=== PATIENT | female | born 1960 | race Caucasian/White ===

== ENCOUNTER 2023-01-07 06:17 | Observation (INO) ==
--- NOTE | 2022-12-22 09:17 | PAT Medication Instructions ---
Medication Instructions Date of Service December 22, 2022 Home Medications cholecalciferol (vitamin D3) 125 mcg (5,000 unit) tablet (Vitamin D3) 125 mcg PO QAM divalproex 500 mg tablet,extended release 24 hr (Depakote ER) 1,000 mg PO PM galcanezumab-gnlm 120 mg/mL subcutaneous pen injector (Emgality Pen) 120 mg subcut MO levocetirizine 5 mg tablet (Xyzal) 5 mg PO PM omeprazole 20 mg tablet,delayed release 20 mg PO QPM rizatriptan 10 mg tablet (Maxalt) 0 mg PO .COMPLEX valsartan 80 mg tablet 80 mg PO QAM vitamin E 1 dose PO QAM Continue as directed galcanezumab-gnlm 120 mg/mL subcutaneous pen injector (Emgality Pen) 120 mg subcut MO STOP taking 2 weeks before surgery (or as soon as possible if surgery is within 2 weeks) vitamin E 1 dose PO QAM DO NOT take the morning of surgery cholecalciferol (vitamin D3) 125 mcg (5,000 unit) tablet (Vitamin D3) 125 mcg PO QAM valsartan 80 mg tablet 80 mg PO QAM Take morning of surgery With a small sip of water, OTHERWISE NOTHING TO EAT OR DRINK AFTER MIDNIGHT: rizatriptan 10 mg tablet (Maxalt) 0 mg PO .COMPLEX (if needed) Take evening before surgery divalproex 500 mg tablet,extended release 24 hr (Depakote ER) 1,000 mg PO PM levocetirizine 5 mg tablet (Xyzal) 5 mg PO PM omeprazole 20 mg tablet,delayed release 20 mg PO QPM rizatriptan 10 mg tablet (Maxalt) 0 mg PO .COMPLEX (if needed) Other Notes If you have any questions please call us at [phone] or [phone] or [phone] or [phone]
--- NOTE | 2022-12-23 11:32 | Anesthesiology Consultation ---
Date of Service December 23, 2022 Assessment & Plan (1) Encounter for pre-operative examination: Chart Review Chart Review: Acceptable Risk for Surgery (pending PCP clearance ) and Patient seen in Pre Admission Testing - Awaiting PCP clearance (patient is scheduling) - Pt is NOT an ideal Outpatient Joint Candidate Per PAT appt on 12/23/22, patient denies any recent travel or large group activities. Pt is vaccinated for Covid. Will leave to surgeon's discretion if preop Covid testing needed. Educated on importance of using Covid precautions one week prior to surgery Pt last seen by cardio 03/26/21= seen for evaluation of abnormal EKG. "EKG demonstrates a RBBB and LAFB. Otherwise normal. Unchanged from prior EKGs dating back to at least 2011. ECHO in 2019 was unremarkable." Hx of WPW- s/p ablation 2000. Has done well since then. No significant arrhythmias. Recommend sleep study for snoring and oxygen desaturations at night. Otherwise no additional cardiac testing required at this time. Follow up as needed (Discussed with Dr. Pierce- patient can proceed as scheduled- known bifascicular block; s/p ablation for WPW; asymptomatic) Teaching & Discussion Pre-Anesthesia Teaching/Discussion Notes: Instructed NPO after midnight before surgery,except medications with 15 cc of water. Medication instructions provided according to the PAT guidelines. History Surgery Operation Date: 01/07/23 12:15 Proposed Procedures p Right Total Knee Arthroplasty - Dion Brady DO Height/Weight Height: 5 ft 4 in Weight: 110.2 kg Allergies Allergy/AdvReac Type Severity Reaction Status Date / Time adhesive Allergy Unknown CLEAR Verified 12/19/22 15:34 SURGICAL TAPE-RASH meperidine Allergy Unknown NAUSEA AND Verified 12/19/22 15:34 VOMITING morphine Allergy Unknown FELT LIKE Verified 12/19/22 15:34 HEAD EXPLODED prednisone Allergy Unknown DIFFICULTY Verified 12/19/22 15:34 BREATHING Medications Home Medications Medication Instructions Recorded Confirmed Last Taken cholecalciferol (vitamin D3) 125 125 mcg PO QAM 12/19/22 12/19/22 Unknown mcg (5,000 unit) tablet (Vitamin D3) divalproex 500 mg tablet,extended 1,000 mg PO PM 12/19/22 12/19/22 Unknown release 24 hr (Depakote ER) galcanezumab-gnlm 120 mg/mL 120 mg subcut MO 12/19/22 12/19/22 Unknown subcutaneous pen injector (Emgality Pen) levocetirizine 5 mg tablet (Xyzal) 5 mg PO PM 12/19/22 12/19/22 Unknown omeprazole 20 mg tablet,delayed 20 mg PO QPM 12/19/22 12/19/22 Unknown release rizatriptan 10 mg tablet (Maxalt) 0 mg PO .COMPLEX 12/19/22 12/19/22 Unknown valsartan 80 mg tablet 80 mg PO QAM 12/19/22 12/19/22 Unknown vitamin E 1 dose PO QAM 12/19/22 12/19/22 Unknown Past Medical History Medical History (Updated 12/24/22 @ 12:00 by Yolanda Moreland PA-C) Autoimmune disorder Being worked up for autoimmune disorder. Following with Dr. Perkins at [facility]. Cardiac murmur No murmur noted at 12/23/22 PAT appt Last ECHO done around 2018- [facility] Fatty liver GERD (gastroesophageal reflux disease) Well controlled and stable with med Hiatal hernia History of gout No recent issues History of kidney stones History of migraine History of Lwhjv-Kzknajmln-Xqjzl (WPW) syndrome S/p ablation 2000- no issues since No appointment scheduler at present (last seen by cardio 2020- follow up PRN) HTN (hypertension) Morbid obesity with BMI of 40.0-44.9, adult PONV (postoperative nausea and vomiting) Sleep apnea Unable to tolerate CPAP TMJ (temporomandibular joint disorder) Hx of locking -no recent issues- occ clicking Exercise / Class Metabolic Activity III < 4 Walking/Shop/Light housework (one flight of stairs - no chest pain, mild SOB ) Past Family History Family History Other No family history of adverse response to anesthesia Past Surgical History Surgical History History of x2 History of cardiac catheterization 18 years ago -- no stents History of cardiac radiofrequency ablation for WPW History of carpal tunnel surgery x3 History of colonoscopy History of cystoscopy History of esophagogastroduodenoscopy (EGD) History of laparoscopy x 3 History of left knee replacement History of nephrolithotomy with removal of calculi History of partial thyroidectomy benign tumor History of tonsillectomy and adenoidectomy History of ureter stent S/P excision of lipoma S/P trigger finger release Past Anesthesia History No Hx of Anesthesia Complications (with exception to PONV - no recent issues (unsure if pre-medicated beforehand with IV meds)) and No Family Hx of Anesthesia Complications History of PONV No Hx of Motion Sickness and History of PONV Social History Smoking Status: Never smoker Do You Dip or Chew Tobacco: No Hx Alcohol Use: Yes alcohol intake frequency: holidays/special occasions only Hx Substance Use: No substance use type: does not use Review of Systems Occ palpitations - feels secondary Chronic cough- secondary to allergies- no change - stable Patient denies chest pain, shortness of breath at rest, wheezing No hx of seizures, stroke, OH. No hx of blood clots or blood transfusions Physical Exam Vital Signs VITALS BP 123/82 P 94 TEMP 98.5 SP02 95% RESP 16 Constitutional no acute distress ENMT Mouth: no TMJ clicking Thyromental Distance: > or= 3.5 Finger Breadths (4.0) Mallampati Class: III Mouth / Teeth: 1. Missing 2. Missing Missing side teeth and molars Neck + thick neck and + limited neck extension (mild) Respiratory normal respiratory effort; no respiratory distress Auscultation: lungs clear to auscultation bilaterally; no wheezes Cardiovascular Rate/Rhythm: regular rate and regular rhythm Heart Sounds: no murmur Vessels: no carotid bruit Musculoskeletal Spine: + pain with cervical ROM (mild) Extremities: extremities normal to inspection Psychiatric Orientation: alert Lab Results Anesthesia Preop Results Results Anesthesia Widget: WBC 6.04 K/ul (4.8-10.8) 12/23/22 Hgb 13.7 g/dl (12.0-16.0) 12/23/22 Hct 39.7 % (37.0-47.0) 12/23/22 Plt 176 K/uL (130-400) 12/23/22 Na 140 mmol/L (136-145) 12/23/22 K 3.3 mmol/L (3.5-5.1) L 12/23/22 Cl 109 mmol/L (98-107) H 12/23/22 CO2 24 mmol/L (21-32) 12/23/22 BUN 12 mg/dl (6-23) 12/23/22 Creat 0.60 mg/dl (0.6-1.2) 12/23/22 Glucose Level 108 mg/dl (70-99(Fasting)) H 12/23/22 PT 11.9 Seconds (9.0-12.0) 12/23/22 PTT 26.8 Seconds (21.0-31.0) 12/23/22 INR 1.1 (0.9-1.1) 12/23/22 HA1c 6.3 % (4.5-5.6) H 12/23/22 Urine Color Yellow 12/23/22 Urine Appearance Clear (Clear) 12/23/22 Urine pH 6.0 (4.5-7.5) 12/23/22 Urine Specific [place] 1.014 (1.000-1.030) 12/23/22 Urine Protein Negative (Negative) 12/23/22 Urine Glucose (UA) Negative (Negative) 12/23/22 Urine Ketones Negative (Negative) 12/23/22 Urine Blood Negative (Negative) 12/23/22 Urine Nitrite Negative (Negative) 12/23/22 Urine Bilirubin Negative (Negative) 12/23/22 Urine Urobilinogen Negative (Negative) 12/23/22 Urine Leukocyte Esterase Negative (Negative) 12/23/22 Blood Type O Negative 12/23/22 Antibody Screen NEGATIVE 12/23/22 Testing Electrocardiogram Date: 12/23/22 Findings: + NSR @ (71bpm ) RBBB LAFB Bifascicular block (Per cardio note 03/26/21- "EKG demonstrates RBBB and LAFB. Otherwise normal. Unchanged from prior EKGs dating back to at least 2011. ECHO ins 2019 was unremarkable) Chest X-Ray Date: 12/23/22 FINDINGS: Hyperinflation with diaphragmatic flattening. The cardiomediastinal and hilar silhouettes are within normal limits. No pneumothorax, pleural effusion, airspace consolidation or pulmonary edema. Degenerative changes of the shoulders and spine. IMPRESSION: Mild hyperinflation without acute process. Echocardiogram Date: 12/21/18 EF: 60% LV Function: normal RWMA: + none Other Findings: no LVH Mild aortic and mitral valve thickening without stenosis or regurgitation Mild TR. COVID-19 Risk Screen Screening Information COVID-19 Screen Date: 12/23/22 Exposure 21 Days Family/Household +COVID Last 21 Days: No Exposure 10 Days Any COVID Exposure Last 10 Days: No Symptoms Last 10 Days Experienced COVID Sx Last 10 Days: No + COVID 0-90 Days COVID + in Last 0-90 Days: No Risk Plan COVID Risk Plan: No Risk Identified Patient Education COVID Preop Screening Education Complete: Yes
--- NOTE | 2022-12-24 11:53 | History & Physical Report ---
Date of Service December 24, 2022 date of surgery: 01/07/23 Procedure: Right Total Knee Arthroplasty Surgeon: Dion Brady Assessment & Plan (1) Arthritis of right knee: Plan: Further care discussed with patient and at this point in time has failed conservative measures and would like to proceed with a right total knee replacement. Plan on discharge will be home with home health physical therapy. DVT prophylaxiswith TEDs, SCDs and will also place on aspirin 81 mg p.o. b.i.d. for a month postop. Patient will have follow up appointment in our office two weeks post op for staple/suture removal and re-evaluation. Patient otherwise has no other questions or concerns. The risks and benefits have been discussed including, but not limited to, risk of infection, nerve injury, stiffness, loss of motion, failure to improve, etc. Reasonable outcomes and options of treatment were discussed. An explanation of appropriate alternatives to the procedure that may be advantageous were discussed and their risks and benefits, as well as the risks and benefits of not proceeding with treatment. I offered to answer any additional inquiries concerning the treatment involved. All the patient's questions were answered. The patient is agreeable, understanding of the treatment plan and alternatives, and wishes to proceed with the treatment plan. History of Present Illness Chief Complaint: Right knee pain Primary Care Provider: Doug Solis MD Marylou is a 62 year old female who complains of right knee pain, presents for pre-op evaluation prior to a right total knee replacement by Dr Brady at [facility]. she complains of pain, decreased range of motion, instability and stiffness in her right knee. she states that the symptoms have been chronic and non-traumatic and occurs constantly with intermittent worsening. Currently the patient states that the symptoms are moderate-severe. The pain is described as aching, sharp and throbbing. The symptoms occur continuously. The symptoms are aggravated by ascending stairs, daily activities, first steps while awake walking. Prior NSAIDs include IBU and Aleve. she has been treated with previous cortisone and visco injections in the past without much relief. Allergies Allergy/AdvReac Type Severity Reaction Status Date / Time adhesive Allergy Unknown CLEAR Verified 12/19/22 15:34 SURGICAL TAPE-RASH meperidine Allergy Unknown NAUSEA AND Verified 12/19/22 15:34 VOMITING morphine Allergy Unknown FELT LIKE Verified 12/19/22 15:34 HEAD EXPLODED prednisone Allergy Unknown DIFFICULTY Verified 12/19/22 15:34 BREATHING Home Medications Medication Instructions Recorded Confirmed Type cholecalciferol (vitamin D3) 125 125 mcg PO QAM 12/19/22 12/19/22 History mcg (5,000 unit) tablet (Vitamin D3) divalproex 500 mg tablet,extended 1,000 mg PO PM 12/19/22 12/19/22 History release 24 hr (Depakote ER) galcanezumab-gnlm 120 mg/mL 120 mg subcut MO 12/19/22 12/19/22 History subcutaneous pen injector (Emgality Pen) levocetirizine 5 mg tablet (Xyzal) 5 mg PO PM 12/19/22 12/19/22 History omeprazole 20 mg tablet,delayed 20 mg PO QPM 12/19/22 12/19/22 History release rizatriptan 10 mg tablet (Maxalt) 0 mg PO .COMPLEX 12/19/22 12/19/22 History valsartan 80 mg tablet 80 mg PO QAM 12/19/22 12/19/22 History vitamin E 1 dose PO QAM 12/19/22 12/19/22 History Past Med/Surg History Medical History Autoimmune disorder Being worked up for autoimmune disorder. Following with Dr. Perkins at [facility]. Cardiac murmur No murmur noted at 12/23/22 PAT appt Last ECHO done around 2019- [facility] [place] or [facility] Fatty liver GERD (gastroesophageal reflux disease) Well controlled and stable with med Hiatal hernia History of gout No recent issues History of kidney stones History of migraine History of Zpzve-Dwpigacdn-Ahebp (WPW) syndrome S/p ablation 2000- no issues since No circuit manager at present (had to see [facility] approx 1 year ago for surgical clearance) HTN (hypertension) Morbid obesity with BMI of 40.0-44.9, adult PONV (postoperative nausea and vomiting) Sleep apnea Unable to tolerate CPAP TMJ (temporomandibular joint disorder) Hx of locking -no recent issues- occ clicking Surgical History History of x2 History of cardiac catheterization 18 years ago -- no stents History of cardiac radiofrequency ablation for WPW History of carpal tunnel surgery x3 History of colonoscopy History of cystoscopy History of esophagogastroduodenoscopy (EGD) History of laparoscopy x 3 History of left knee replacement History of nephrolithotomy with removal of calculi History of partial thyroidectomy benign tumor History of tonsillectomy and adenoidectomy History of ureter stent S/P excision of lipoma S/P trigger finger release Family History Other No family history of adverse response to anesthesia Social History Smoking Status: Never smoker Second Hand Exposure: No; Hx Alcohol Use: Yes Hx Substance Use: No Preferred Language: Danish Post Office Clerk Required: No Beliefs That Will Affect Care: None Current Living Situation: Significant Other Feels Safe at Home: Yes Assistive Devices: Glasses Review of Systems Review of Systems: All systems reviewed & are unremarkable except as noted in HPI & below Constitutional: no fever, no chills and no sweats Respiratory: no cough and no dyspnea Cardiovascular: no chest pain, no dyspnea and no orthopnea Gastrointestinal: no abdominal pain, no nausea and no vomiting Musculoskeletal: as per Subjective / HPI Physical Exam Physical Exam: HT: 5ft 4in WT: 110kg Constitutional: WD/WN, vitals as above no acute distress Respiratory: normal respiratory effort, lungs clear to auscultation no respiratory distress, no labored breathing and does not use accessory muscles Cardiovascular: RRR, no murmur, no edema Gastrointestinal (Abdomen): normal bowel sounds, soft, nontender, no hepatosplenomegaly Musculoskeletal: Knee: + knee abnormal to inspection (RIGHT KNEE: ), + effusion (+1 effusion), + limited ROM of knee (ROM 0/3/110), + knee ROM with crepitation, + joint line tenderness (medial joint line) and + Doe's sign positive; no deformity, no skin erythema, no ecchymosis, no valgus laxity, no varus laxity, anterior drawer test negative, Lauren's sign negative and pivot shift test negative Results & Data Results & Data ([facility]) Diagnostic Findings Right Knee X-ray: Right knee series showing advanced degenerative changes to the right knee, narrowing of the medial compartment and patello-femoral joint with patellar spurring noted, findings showing joint space narrowing of the medial compartment and patello-femoral joint, osteophyte formation and subchondral sclerosis noted. overall varus alignment. no acute bony pathology noted.
[~2023-01-07 06:17] MED LIST: ACETAMINOPHEN 500 MG TAB PO SCH; ALLERGY Noted to ORDERED Medication SCH; CeleBREX 200 MG CAP PO SCH; FAMOTIDINE 20 MG TAB PO SCH; GABAPENTIN 600 MG DOSE PO SCH; LR 500ML BOLUS, THEN 15ML/HR IV SCH; ROPIVACAINE 0.5% HCL/PF 150 MG, BUPIVACAINE 0.75% MPF 20 ML, EPINEPHrine 30MG/30ML (OR ... INSTIL SCH; TRANEXAMIC ACID 1,000 MG **IV Intra-op IV SCH; TRANEXAMIC ACID 1,000 MG **IV Pre-op IV SCH; ceFAZolin 2000MG 2,000 MG/15 ML SYR IV SCH
[2023-01-07] MEDS ORDERED: ROPIVACAINE 0.5% 5 MG/ML 30 ML VIAL ONE (06:31)
[2023-01-07] MEDS ORDERED: BUPIVACAINE 0.5 % 5 MG/1 ML PF 10ML VIAL ONE (06:31)
[2023-01-07] MEDS ORDERED: MIDAZOLAM HCL 1 MG/ML 2ML VIAL ONE (06:50)
[2023-01-07] MEDS ORDERED: fentaNYL citrate PF 100 MCG/2 ML VIAL ONE (06:50)
[2023-01-07] MEDS ORDERED: ORTHO JOINT ANESTHETIC ONE (07:03)
--- NOTE | 2023-01-07 07:09 | History & Physical Bridge Note ---
Date of Service January 07, 2023 History & Physical Bridge Note I have examined the patient, reviewed the History & Physical and in the interval since the performance of the History & Physical I have noted the following changes of clinical significance: no changes noted
[2023-01-07] MEDS ORDERED: ONDANSETRON INJ 2 MG/ML 2 ML VIAL IV PRN ×2 (07:10→10:54)
[2023-01-07] MEDS ORDERED: ePHEDrine sulfate 50 MG/ML AMP IV PRN (07:10)
[2023-01-07] MEDS ORDERED: ATROPINE SULFATE 0.1 MG/ML 10ML SYR IV PRN (07:10)
[2023-01-07] MEDS ORDERED: ROPIVACAINE 0.5% HCL/PF 150 MG, BUPIVACAINE 0.75% MPF 20 ML, EPINEPHrine 30MG/30ML (OR ... INFIL SCH (08:00)
[2023-01-07] MEDS ORDERED: ONDANSETRON INJ 2 MG/ML 2 ML VIAL ONE (08:07)
[2023-01-07] MEDS ORDERED: PROPOFOL IV EMULSION 10 MG/ML 20 ML VIAL IV ONE (08:07)
[2023-01-07] MEDS ORDERED: ALBUTEROL HFA 8 GM INHALER INH ONE (08:36)
--- NOTE | 2023-01-07 08:53 | Operative Report ---
Post Operative Report Pre & Post Diagnosis Operation Date: 01/07/23 08:25 Pre-Op Diagnosis: Osteoarthritis Knee Right Post-Op Diagnosis: Osteoarthritis Knee Right I identified the patient and participated in the time-out.: Yes Procedure Operation Date: 01/07/23 08:25 Actual Procedures p Right Total Knee Arthroplasty(Right) utilizing Julian & NephBLOVES journey 2 nonblock right total knee arthroplasty size femur 4 tibia 3 Poly 12 patella 32 natacha Brady DO Surgeon Dion Brady DO Seaman Officer LEONARD Collins Estimated Blood Loss 5 Findings Consistent with Post-Op Diagnosis Patient presents with severe end-stage tricompartmental degenerative joint disease right knee eburnated [id number] marginal osteophytes moderate to large effusion Specimens Bone and cartilage Drains Medium bore Hemovac Anesthesia Type MAC Spinal Regional Complications none Disposition Accompanied Patient To Recovery: No Disposition: Recovery Room Indications Patient presents with severe end-stage DJD right knee eburnated [id number] nonresponsive corticosteroid injection viscosupplementation bracing relative rest activity modification presents for total knee arthroplasty Description of Procedure After proper prepping and draping of the Right lower extremity anterior midline incision was made over the region of the extensor extensor mechanism after meticulous hemostasis was obtained and maintained in subcutaneous tissues a medial parapatellar incision was made The patella was subluxed lateralward the medial lateral gutter were cleaned from any hypertrophic synovitis and scar tissue of the distal femoral block was placed and the distal femoral osteotomy cut was made subsequently the chamfers anterior and posterior osteotomy cuts were made utilizing the 4-in-1 block the tibia was subsequently subluxed anteriorward medial and ateral meniscal remnants were excised in their entirety remnants of the anterior and posterior cruciate ligaments were excised in their entirety excellent exposure of the proximal tibia was obtained the tibial osteotomy guide was placed on the proximal tibial osteotomy cut was made once again the knee was irrigated with copious amounts of sterile saline solution the patella was subsequently everted lateralward thickened scar tissue around the patella was removed the patella was subsequently cut utilizing a freehand technique and was drilled prepared for final preparation and placement of patella socially flexion-extension gaps were checked and the equal and symmetric trials were placed to the appropriate femoral and tibial trials with poly-spacer being placed for equal flexion and extension gaps and full range of motion including extension to 0 and flexion to 140 the trial components after having been taken to recovery range of motion was subsequently removed meticulous hemostasis was obtained and maintained subsequently a knee block injection of joint cocktail including ropivacaine 0.5% 150 mg. Bupivacaine 0.5% epinephrine 1-200,030 mL's toradol 30 mg dexamethasone 4 mg ketamine 10 mg clonidine 100 micrograms normal saline solution 30 mg was infiltrated into the soft tissues of the posterior knee medial lateral gutters and periosteal synovium special attention was paid to protect neurovascular structures at all times subsequently trial components having been removed the knee was irrigated with sterile saline solution. debris was removed the proximal tibia was subsequently prepared and was made ready for the placement of the tibial component tibial component was also cemented and tamped into position the femoral component was subsequently placed and cemented in the position the patellar component was subsequently cemented in position because hemostasis once again obtained and maintained wound having been thoroughly irrigated with debridement and debridement lavage was performed as well as a medial parapatellar incision closed with #1 Vicryl in interrupted fashion subcutaneous was closed with #2 Vicryl skin was closed with skin clips. PA-C was necessary for prepping and drapping as well as wound closure of deep fascia Sub cutaneous tissue and skin and was necessary for the case. A sterile compressive dressing was placed patient was taken to recovery in stable condition of report dictated by Jose Antonio I attest to the content of the Intraoperative Record and any orders documented therein. Any exceptions are noted below.Due to the complex nature of the procedure, the entire surgery was performed with the operational assistance of LEONARD Collins. The medical technician assistant, under direct supervision, was involved in the actual performance of all aspects of the surgical procedure including hemostasis, tissue retraction and incision, instrument management, patient positioning, and wound closure. I attest to the content of the Intraoperative Record and any orders documented therein. Any exceptions are noted below.
[2023-01-07] MEDS ORDERED: KETOROLAC 30 MG/ML VIAL ONE (08:56)
[2023-01-07] MEDS: fentaNYL citrate PF 100 MCG/2 ML VIAL IV PRN ×2 (09:37→09:42)
[2023-01-07] MEDS: HYDROmorphone INJ 2 MG/ML SYR/VIAL IV PRN ×2 (10:00→10:05)
--- NOTE | 2023-01-07 10:34 | Anesthesiology Progress Note ---
Date of Service January 07, 2023 Anesthesia Post Procedure Vital Signs Vital Signs: Temp Pulse Pulse Resp BP Pulse Ox O2 Del Method 01/07/23 10:30 68 12 112/74 93 Nasal Cannula 01/07/23 10:20 63 13 104/69 98 Nasal Cannula 01/07/23 10:10 36 C L 65 12 115/65 92 Nasal Cannula 01/07/23 10:00 64 13 125/69 97 Oxymask 01/07/23 09:50 71 11 L 117/77 94 Oxymask 01/07/23 09:40 69 18 125/85 95 Oxymask 01/07/23 09:30 80 20 123/61 91 Oxymask 01/07/23 09:23 36.7 C 87 21 121/78 91 Oxymask 01/07/23 06:45 36.9 C 85 14 150/93 H 97 Room Air O2 Flow Rate 01/07/23 10:30 4 01/07/23 10:20 4 01/07/23 10:10 4 01/07/23 10:00 4 01/07/23 09:50 9 01/07/23 09:40 9 01/07/23 09:30 9 01/07/23 09:23 5 01/07/23 06:45 Pain Intensity Right Knee: Pain Intensity: 4 Transfer of Care Handoff Completed per policy Notes Mental Status: alert / awake / arousable and participated in evaluation Patient Amnestic to Procedure: Yes Nausea / Vomiting: adequately controlled Pain: adequately controlled Airway Patency, RR, SpO2: see Notes below (pt on 4L o2. pt saturating well while awake but desats when sleeping) BP & HR: stable & adequate Hydration State: stable & adequate Anesthetic Complications: no major complications apparent and Pt Satisfied with anesthetic care
--- NOTE | 2023-01-07 10:36 | XRay Report ---
XR knee RT 1 or 2V routine CLINICAL HISTORY: Surgical Post Op COMPARISON: None FINDINGS: Alignment of the total right knee arthroplasty is anatomic. There is no periprosthetic fra cture or unexpected radiopaque foreign body. There are skin anya and drains. IMPRESSION: Expected findings following total right knee arthroplasty. ACT 112: Negative or not required by law. Electronically signed by: Merrill Farris M.D. 01/07/2023 10:35 AM
[2023-01-07] MEDS ORDERED: NALOXONE HCL 0.4 MG/1 ML VIAL/CARP IV PRN (10:54)
[2023-01-07] MEDS ORDERED: oxyCODONE HCL IR 5 MG TAB (IMMEDIATE RELEASE) PO PRN (10:54)
[2023-01-07] MEDS ORDERED: HYDROmorphone INJ 1 MG/ML SYRINGE IV PRN (10:54)
[2023-01-07] MEDS ORDERED: METOCLOPRAMIDE HCL INJ 5 MG/ML 2 ML VIAL IV PRN (10:54)
[2023-01-07] MEDS ORDERED: MAGNESIUM HYDROXIDE SUSP 30 ML UDC PO PRN (10:54)
[2023-01-07] MEDS ORDERED: bisacodyL 10 MG SUPP PR PRN (10:54)
[2023-01-07] MEDS ORDERED: RIZATRIPTAN BENZOATE 10 MG TAB PO PRN (10:54)
[2023-01-07] MEDS ORDERED: diphenhydrAMINE Capsule 25 MG CAP PO PRN (10:54)
[2023-01-07] MEDS: SODIUM CHLORIDE 0.9% 1000ML 1,000 ML IV SCH ×2 (12:22→22:15)
[2023-01-07] MEDS: KETOROLAC TROMETHAMINE 15 MG/ML VIAL IV SCH ×2 (12:22→17:52)
[2023-01-07] MEDS: ceFAZolin 2000MG 2,000 MG/15 ML SYR IV SCH ×2 (14:08→21:20)
[2023-01-07] MEDS: ACETAMINOPHEN 500 MG TAB PO SCH ×2 (14:08→21:21)
[2023-01-07] MEDS ORDERED: CeleBREX 200 MG CAP PO SCH (21:00)
[2023-01-07] MEDS ORDERED: DIVALPROEX EXTENDED RELEASE 500 MG TAB PO SCH (21:00)
[2023-01-07] MEDS ORDERED: CETIRIZINE HCL 10 MG TABLET PO SCH (21:00)
[2023-01-07] MEDS ORDERED: SENNA 8.6 MG TAB PO SCH (21:00)
[2023-01-07] MEDS: DOCUSATE SODIUM 100 MG CAP PO SCH (21:19)
[2023-01-07] MEDS: ASPIRIN 81 MG ECTAB PO SCH (21:19)
[2023-01-08] MEDS: KETOROLAC TROMETHAMINE 15 MG/ML VIAL IV SCH ×2 (00:33→05:26)
[2023-01-08] MEDS: ACETAMINOPHEN 500 MG TAB PO SCH (05:26)
[2023-01-08 08:11] LABS: Hematocrit (blood only) 33.2 % (37.0-47.0); Hemoglobin 11.1 g/dl (12.0-16.0); Mean Corpuscular Hemoglobin 29.4 pg (25.0-34.0); Mean Corpuscular Hgb Conc 33.4 g/dL (32.0-36.0); Mean Corpuscular Volume 87.8 fL (80.0-100.0); Mean Platelet Volume 9.7 fL (9.4-12.4); Platelet Count 142 K/uL (130-400); RDW Coefficient of Variation 13.8 % (11.5-14.5); RDW Standard Deviation 43.9 fL (36.4-46.3); Red Blood Count 3.78 M/uL (4.20-5.40); White Blood Count 5.25 K/ul (4.8-10.8)
[2023-01-08 08:27] LABS: BUN Creatinine Ratio 18.2 (10-20); Calcium 8.5 mg/dl (8.5-10.1); Creatinine Clr Calc Pharmacy 106.5 ml/min; Est GFR (African American) 109.7 ml/min; Est GFR (Non-African American) 94.7 ml/min; Potassium 3.9 mmol/L (3.5-5.1)
[2023-01-08] MEDS: DOCUSATE SODIUM 100 MG CAP PO SCH (08:41)
[2023-01-08] MEDS: ASPIRIN 81 MG ECTAB PO SCH (08:41)
[2023-01-08] MEDS ORDERED: CHOLECALCIFEROL 5,000 UNITS 125 MCG TAB PO SCH (09:00)
[2023-01-08] MEDS ORDERED: MULTIVITAMIN TAB PO SCH (09:00)
[2023-01-08] MEDS ORDERED: VITAMIN E PO SCH (09:00)
[2023-01-08] MEDS ORDERED: VALSARTAN 80 MG TAB PO SCH (09:00)
--- NOTE | 2023-01-08 10:05 | Orthopedic Progress Note ---
Date of Service January 08, 2023 Assessment & Plan (1) History of total right knee replacement: Plan: Pt is POD#1 s/p Right TKA -PT/OT -Pain regime as written -DVT ppx with TEDs/SCDs/ASA BID -Pt to have drain removed prior to D/C. She is stable from an orthopedic st andpoint to be discharged today. Admission and Anticipated Discharge Date Admission Date: January 07, 2023 Subjective Pt is POD #1 s/p Right TKA -Doing well this morning, resting in bed eating breakfast at time of exam -States she does have some pain now that her block has worn off, worse with movement, however is manageable at this time with current pain regime. -Denies CP, SOB, abdominal pain, fevers or chills Review of Systems Review of Systems: All systems reviewed & are unremarkable except as noted in Subjective Physical Exam Physical Exam: RLE with dressing and drain in place, area is c/d/i. Minimal output noted in hemovac during exam. Calf is soft and nontender and negative bryan sign. Able to wiggle toes without issue, full ROM of right ankle, distal perfusion and sensation grossly intact. Results & Data Vital Signs (Past 12 Hours) Vital Signs Temp Pulse Pulse Resp BP Pulse Ox O2 Del Method 01/08/23 08:12 36.8 C 70 18 111/72 94 Nasal Cannula 01/08/23 04:00 36.8 C 66 18 112/70 96 Nasal Cannula 01/08/23 00:34 36.7 C 68 18 105/66 93 Nasal Cannula O2 Flow Rate 01/08/23 08:12 2 01/08/23 04:00 2 01/08/23 00:34 2 Laboratory Results Laboratory Results WBC 5.25 K/ul (4.8-10.8) 01/08/23 07:43 RBC 3.78 M/uL (4.20-5.40) L 01/08/23 07:43 Hgb 11.1 g/dl (12.0-16.0) L 01/08/23 07:43 Hct 33.2 % (37.0-47.0) L 01/08/23 07:43 MCV 87.8 fL (80.0-100.0) 01/08/23 07:43 MCH 29.4 pg (25.0-34.0) 01/08/23 07:43 MCHC 33.4 g/dL (32.0-36.0) 01/08/23 07:43 RDW Std Deviation 43.9 fL (36.4-46.3) 01/08/23 07:43 RDW Coeff of Jing 13.8 % (11.5-14.5) 01/08/23 07:43 Plt Count 142 K/uL (130-400) 01/08/23 07:43 MPV 9.7 fL (9.4-12.4) 01/08/23 07:43 Sodium 142 mmol/L (136-145) 01/08/23 07:43 Potassium 3.9 mmol/L (3.5-5.1) 01/08/23 07:43 Chloride 110 mmol/L (98-107) H 01/08/23 07:43 Carbon Dioxide 26 mmol/L (21-32) 01/08/23 07:43 Anion Gap 6 (3-11) 01/08/23 07:43 BUN 12 mg/dl (6-23) 01/08/23 07:43 Creatinine 0.66 mg/dl (0.6-1.2) 01/08/23 07:43 Est Cr Clr Drug Dosing 106.5 ml/min 01/08/23 07:43 Est GFR ( Amer) 109.7 ml/min 01/08/23 07:43 Est GFR (Non-Af Amer) 94.7 ml/min 01/08/23 07:43 BUN/Creatinine Ratio 18.2 (10-20) 01/08/23 07:43 Glucose 111 mg/dl (70-99(Fasting)) H 01/08/23 07:43 Calcium 8.5 mg/dl (8.5-10.1) 01/08/23 07:43 SARS-CoV-2, RNA, NAAT NEGATIVE (NEGATIVE) 01/07/23 Unknown Impressions Knee X-Ray 01/07/23 09:15 XR knee RT 1 or 2V routine CLINICAL HISTORY: Surgical Post Op COMPARISON: None FINDINGS: Alignment of the total right knee arthroplasty is anatomic. There is no periprosthetic fracture or unexpected radiopaque foreign body. There are skin anya and drains. IMPRESSION: Expected findings following total right knee arthroplasty. ACT 112: Negative or not required by law. Electronically signed by: Merrill Farris M.D. 01/07/2023 10:35 AM
--- NOTE | 2023-01-09 08:03 | Discharge Summary ---
Date of Service date of discharge: January 08, 2023 date of admission: 01/07/23 Admission HPI Per Admitting Provider Marylou is a 62 year old female who complains of right knee pain, presents for pre-op evaluation prior to a right total knee replacement by Dr Brady at [facility]. she complains of pain, decreased range of motion, instability and stiffness in her right knee. she states that the symptoms have been chronic and non-traumatic and occurs constantly with intermittent worsening. Currently the patient states that the symptoms are moderate-severe. The pain is described as aching, sharp and throbbing. The symptoms occur continuously. The symptoms are aggravated by ascending stairs, daily activities, first steps while awake walking. Prior NSAIDs include IBU and Aleve. she has been treated with previous cortisone and visco injections in the past without much relief. Principal Diagnosis right knee arthritis Discharge Exam Musculoskeletal right knee: NVDI, calf SNT, negative bryan sign. DP palpable, able to wiggle toes/ankle movement without difficulty. ALPESH dressing clean dry and intact. expected post-operative bruising noted. Discharge Data Allergies Allergy/AdvReac Type Severity Reaction Status Date / Time adhesive Allergy Unknown CLEAR Verified 01/07/23 06:41 SURGICAL TAPE-RASH meperidine Allergy Unknown NAUSEA AND Verified 01/07/23 06:41 VOMITING morphine Allergy Unknown FELT LIKE Verified 01/07/23 06:41 HEAD EXPLODED prednisone Allergy Unknown DIFFICULTY Verified 01/07/23 06:41 BREATHING Procedures Performed Operation Date: 01/07/23 08:25 Actual Procedures p Right Total Knee Arthroplasty(Right) - Dion Brady, Ordered Studies 01/07/23 05:00 US - OR guided needle placemen Routine Hospital Course (1) History of total right knee replacement: Pt is POD#1 s/p Right TKA -PT/OT -Pain regime as written -DVT ppx with TEDs/SCDs/ASA BID -Pt to have drain removed prior to D/C. She is stable from an orthopedic standpoint to be discharged today. Total Time Total Time Spent Total Time Spent (In Minutes): 20 Discharge Plan Discharge Items Patient Disposition: Home - Home Health Services Reason For Visit: Osteoarthritis Knee Right Discharge Diagnosis: Right total knee replacement Activity: Per Instructions section Weightbearing: Right weightbearing Weightbearing Comment: WBAT to RLE with walker Non-emergency contact: Surgeon Call non-emergency contact if: you have any medication questions, your temperature is above 101, your wound has increased redness, your wound has increased drainage and your wound pain has increased Follow-up/Referrals: Dion Brady DO [Surgeon] - (f/u with Dr. Brady or his PA Luis Leigh in 2 weeks for your first post-op check up) Peter Sandra [Primary Care Provider] - Diet: Regular Addtl Attending Provider Instructions: ACTIVITY RECOMMENDATIONS: SELF CARE INSTRUCTIONS AFTER TOTAL KNEE REPLACEMENT A. You may need to continue a physical therapy program after discharge from the hospital. There are several options available to you. Your doctor will assist you in selecting the best one for you. 1. An out-patient facility 2 to 3 times a week for therapy or home therapy. 2. Continue working on all exercises taught to you in the hospital. Your goals should be to increase bending of your knee to 90 degrees and beyond and to fully straighten your knee. B. You may progress at your own pace from walking with a walker or crutches to a cane; then to no assistive devices. C. Make walking a part of your daily routine. Be up as much as comfortable with rest periods throughout the day. Rest with leg elevation is very important. Use the ice wrap frequently for the first 3-4 weeks. D. There are no restrictions on activities. You may ride in a car, shop, participate in network contractor and all social activities. E. Wear the long elastic stockings (SAURABH hose) 20 hours a day for 2 weeks after surgery. They can be removed several times a day for laundering and for a bath. F. You may shower, no tub baths until cleared by your doctor. SPECIAL CARE INSTRUCTIONS: VERY IMPORTANT TO READ AND REVIEW A. There are a few signs you need to watch for after you are home. Call [facility] if you notice any of the followin. Increased severe knee pain. Some pain is expected especially when you exercise. 2. Increased swelling in your leg or knee; pain or swelling of the calf muscle in either lower leg. 3. Any fluid drainage from the incision. 4. Shortness of breath or chest pain. B. Please call [facility] at if you have any concerns or questions about your operation or recovery. The doctor or his nurse will return your call promptly. C. You must take antibiotics before dental work, bladder, bowel or other surgery. Your doctor will provide you with a permanent care to carry describing this precaution. IMPORTANT: * REMEMBER TO TAKE ASPIRIN, 81 MG, TWICE DAILY FOR 4 WEEKS UNLESS OTHERWISE DIRECTED. THIS IS YOUR BLOOD THINNER. * HIGH RISK PATIENTS MAY BE PRESCRIBED A STRONGER BLOOD THINNER. THIS WILL BE PROVIDED AT DISCHARGE. * CALL IF INCREASED PAIN, REDNESS, DRAINAGE OR FEVER GREATER THAT 101. * WEAR SAURABH HOSE 20 HOURS PER DAY FOR 2 WEEKS. * ALPESH Dressing- This is a large suction dressing covering your incision. This will help pull any excess drainage from the wound and allow your incision to heal properly. You may shower with this if you can keep the unit outside of the shower. If any bleeding or leakage is noted please call your doctor's office. This will remain on your incision for 7 days and then should be removed. This can be done yourself or by the home nursing staff if applicable. The entire unit is disposable once removed. Once removed, keep incision clean and dry. If redness or drainage is noted, please call your surgeon. FOLLOW UP VISIT: If appointment is not already scheduled: Please call [facility] to make a follow-up appointment for 2 weeks after your surgery at . Pending Studies at Discharge: No Stand-Alone Forms: [facility], Smoking Cessation Medications and DC Order Prescriptions: New cefadroxil 500 mg capsule 500 mg PO BID 14 Days Qty: 28 1RF acetaminophen 500 mg capsule 1,000 mg PO Q8H 14 Days Qty: 84 0RF celecoxib [Celebrex] 200 mg capsule 200 mg PO BID PRN (Reason: pain) Qty: 60 0RF aspirin [Ecotrin Low Strength] 81 mg tablet,delayed release (DR/EC) 81 mg PO BID 30 Days Qty: 60 0RF oxycodone 5 mg tablet 5 mg PO Q4H MDD 6 PRN (Reason: pain) Qty: 30 0RF Continued rizatriptan [Maxalt] 10 mg Tablet 0 mg PO .COMPLEX Rx Instructions: take 1 tab at onset of headache; if no relief may repeat 1 tab after at least 2 hrs; max = 3 tabs/24 hr valsartan 80 mg Tablet 80 mg PO QAM divalproex [Depakote ER] 500 mg Tablet Extended Release 24 Hr 1,000 mg PO PM levocetirizine [Xyzal] 5 mg Tablet 5 mg PO PM omeprazole 20 mg Tablet,Delayed Release (Dr/Ec) 20 mg PO QPM cholecalciferol (vitamin D3) [Vitamin D3] 125 mcg (5,000 unit) Tablet 125 mcg PO QAM Emgality Pen 120 mg/mL Pen Injector 120 mg SUBCUT MO vitamin E 1 dose PO QAM Admission Data Admit Date/Time: 01/07/23 09:15 Attending Provider: Dion Brady Admit Provider: Dion Brady Primary Care Provider: Peter Sandra Other Interventions: Discharge Summary Assessment (RN) Last Done: 01/08/23 12:13
== END 2023-01-08 13:27 | disposition home health service (06) ==
LOC: ASU 06:17 → 3E 06:17
DX: M17.11 Unilateral primary osteoarthritis, right knee; Z68.41 Body mass index [BMI] 40.0-44.9, adult; E66.01 Morbid (severe) obesity due to excess calories; Z79.899 Other long term (current) drug therapy; Z88.8 Allergy status to other drugs, medicaments and biological substances